=== PATIENT | female | born 1955 | race American Indian/Alaskan Native ===

== ENCOUNTER 2018-03-24 20:04 | Emergency (ER) | payer OTHER ==
[2018-03-24 20:04] VITALS: BMI 26.6
[2018-03-24 20:33] VITALS: BP 159/88; PULSE 75; RESP 20; TEMP 99.4; O2SAT 96
--- NOTE | 2018-03-24 21:16 | C.PDOC ---
History Of Present Illness 62 y/o female c/o pain and swelling to right thumb and thenar eminence for one week with no known trauma. pt reports using hand a lot at work, works in [employer]. Time Seen by Provider: 03/24/18 20:43 Chief Complaint (Nursing): Upper Extremity Problem/Injury Past Medical History Vital Signs: Last Vital Signs Temp 99.4 F 03/24/18 20:31 Pulse 75 03/24/18 20:31 Resp 20 03/24/18 20:31 BP 159/88 H 03/24/18 20:31 Pulse Ox 96 03/24/18 21:22 - [facility] ENDOSCOPIC BIOPSY OF RECTUM (12/15/14) INJECT/INFUSE NEC (12/22/04) - Social History Hx Alcohol Use: No Hx Substance Use: No - Immunization History Hx Tetanus Toxoid Vaccination: No Hx Influenza Vaccination: Yes Hx Pneumococcal Vaccination: No ED Course And Treatment O2 Sat by Pulse Oximetry: 96 Disposition Counseled Patient/Family Regarding: Diagnosis, Need For Followup, Rx Given - Disposition Referrals: Jeff Avila MD [Staff Provider] - Disposition: HOME/ ROUTINE Disposition Time: 21:17 Condition: GOOD Additional Instructions: Wear piter bandage for comfort. Cold compresse to hand. Ibuprofen for pain. Recommend light duty at work, Please follow up avelino Avila (hand surgeon) for further evaluation. Prescriptions: Ibuprofen [Motrin] 600 mg PO TID #30 tab Instructions: Hand Pain (DC) Forms: General Discharge Instructions, [facility] (K[place]akh), Work Excuse - Clinical Impression Clinical Impression: Right hand pain
== END 2018-03-24 21:27 | disposition home or self-care (01) ==
LOC: C.ER 20:04
DX: M79.641 Pain in right hand (principal)